=== PATIENT | male | born 1975 | race Caucasian/White ===

== ENCOUNTER 2017-03-07 19:24 | Emergency (ER) | payer SELFPAY ==
[~2017-03-07] VITALS: Ht 175.3 cm; Wt 106.6 kg
[2017-03-07 19:33] VITALS: BP 152/90
--- NOTE | 2017-03-07 19:55 | NUR ---
TO ER OF3
--- NOTE | 2017-03-07 19:55 | NUR ---
Patient being evaluated by COMMUNICATIONS REPRESENTATIVE.
--- NOTE | 2017-03-07 20:16 | NUR ---
Patient being evaluated by DR. NEWTON at bedside.
[2017-03-07] MEDS ORDERED: HYDROcodone/APAP 5/325 MG 1 TAB TAB PO ONE (20:25)
[2017-03-07] MEDS ORDERED: DIAZEPAM 5 MG TAB PO ONE (20:25)
[2017-03-07] MEDS ORDERED: KETOROLAC 60 MG/2 ML VIAL IM ONE (20:25)
--- NOTE | 2017-03-07 20:30 | NUR ---
Note undone in EDM - 03/07/17 at 2030 by [facility] Y/M PT. PRESENTS TO ED WITH C/O LEG CRAMPS STARTED 3 WEEKS AGO WORSE THIS TUESDAY; C/O FALLING, THREE TIMES TODAY LAST FALL TODAY AT THE [facility]. C/O NUMBNESS AND TINGLING TO BILATERAL FEET AAO X4, AMBULATORY WITH UNSTEADY GAIT DUE TO LEG CRAMPING AND MILD WEAKNESS. C/O PAIN /. VSS, ER MADE AWARE OF PT. STATUS
[2017-03-07 21:11] LABS: ANION GAP 11.6 (8-16); CARBON DIOXIDE 29.1 mmol/L (21-32); CREATININE 1.1 mg/dL (0.7-1.3); POTASSIUM 3.7 mmol/L (3.5-5.1)
--- NOTE | 2017-03-07 21:49 | NUR ---
Patient discharged with v/s stable. Written and verbal after care instructions given and explained. Patient alert, oriented and verbalized understanding of instructions. Ambulatory with steady gait. All questions addressed prior to discharge. ID band removed. Patient advised to follow up with PMD. Rx of NAPROSYN 500MG AND NORCO 5/325MG AND VALIUM 5MG given. Patient educated on indication of medication including possible reaction and side effects. Opportunity to ask questions provided and answered.
[2017-03-07 21:50] VITALS: BP 137/82
== END 2017-03-07 21:50 | disposition home or self-care (01) ==
LOC: MED 19:24
DX: M54.40 Lumbago with sciatica, unspecified side (principal); M79.605 Pain in left leg; M79.604 Pain in right leg; Z90.89 Acquired absence of other organs
CPT/HCPCS: 36415; 80048; 96372; 99283; J1885

== ENCOUNTER 2017-11-21 18:21 | Emergency (ER) | payer SELFPAY ==
[~2017-11-21] VITALS: Ht 177.8 cm; Wt 108.9 kg
[2017-11-21 18:27] VITALS: BP 139/80
[2017-11-21] MEDS: oxyCODONE/APAP 5/325 MG 1 TAB TAB PO ONE (20:40)
[2017-11-21] MEDS: DEXAMETHASONE 10 MG/ML VIAL IM ONE (20:42)
[2017-11-21] MEDS: KETOROLAC 60 MG/2 ML VIAL IM ONE (20:43)
[2017-11-21 21:15] VITALS: BP 128/78
[2017-11-22] MEDS ORDERED: BACLOFEN 10 MG TAB PO SCH (09:00)
== END 2017-11-21 21:15 | disposition home or self-care (01) ==
LOC: MED 18:21
DX: M54.32 Sciatica, left side (principal); M54.31 Sciatica, right side; G89.29 Other chronic pain
CPT/HCPCS: 96372; 99284; J1100; J1885